=== PATIENT | female | born 1995 | race Caucasian/White ===

== ENCOUNTER 2019-03-19 03:53 | Emergency (ER) | payer OTHER ==
[2019-03-19 04:24] LABS: BASO % 0.3 % (0.0-1.0); EOS # 0.1 10^3/uL (0.0-0.50); EOS % 1.3 % (0.0-3.0); HEMATOCRIT 40.1 % (36.0-47.0); HEMOGLOBIN 13.9 g/dl (12.0-15.5); LYMPH # 1.9 10^3/uL (1.5-6.5); MEAN CORPUSCULAR HGB CONC 34.7 g/dl (32.0-36.5); MEAN CORPUSCULAR VOLUME 86.6 fl (80.0-96.0); MONO # 0.5 10^3/uL (0.0-0.8); MONO % 6.8 % (0.0-5.0); NEUTROPHILS % 66.5 % (36.0-66.0); PLATELET COUNT, AUTOMATED 324 10^3/uL (150-450); RED BLOOD COUNT 4.63 10^6/uL (4.00-5.40); WHITE BLOOD COUNT 7.5 10^3/uL (4.0-10.0)
--- NOTE | 2019-03-19 04:28 | REPVR ---
EXAM: CT Head Without Contrast EXAM DATE/TIME: 03/19/2019 4:13 AM CLINICAL HISTORY: 24 years old, female; Altered mental status/memory loss; Confusion or disorientation; Additional info: AMS TECHNIQUE: Imaging protocol: Computed tomography images of the head without contrast. Radiation optimization: All CT scans at this facility use at least one of these dose optimization techniques: automated exposure control; mA and/or kV adjustment per patient size (includes targeted exams where dose is matched to clinical indication); or iterative reconstruction. COMPARISON: No relevant prior studies available. FINDINGS: Brain: The cortical/white matter interfaces are preserved throughout the brain. There is no evidence of intracranial hemorrhage. No parenchymal mass lesions are identified. Ventricles: The ventricular system is normal in size and configuration. Bones/joints: No acute fractures of the skull are identified. Sinuses: The visualized paranasal sinuses are clear. Mastoid air cells: The visualized mastoid air cells are clear. Soft tissues: Unremarkable. IMPRESSION: Normal appearance of the brain. Electronically signed by: Ashli Kaplan On 03/19/2019 04:28:14 AM
[2019-03-19] MEDS ORDERED: NS 1,000 ML IV ONE (04:30)
--- NOTE | 2019-03-19 04:32 | REPVR ---
EXAM: CT Cervical Spine Without Contrast EXAM DATE/TIME: 03/19/2019 4:13 AM CLINICAL HISTORY: 24 years old, female; Injury or trauma; Fall; Initial encounter; Blunt trauma; Additional info: AMS TECHNIQUE: Imaging protocol: Computed tomography images of the cervical spine without contrast. Coronal and sagittal reformatted images were created and reviewed. Radiation optimization: All CT scans at this facility use at least one of these dose optimization techniques: automated exposure control; mA and/or kV adjustment per patient size (includes targeted exams where dose is matched to clinical indication); or iterative reconstruction. COMPARISON: No relevant prior studies available. FINDINGS: Vertebrae: There is normal alignment of the visualized spine. There is no evidence of acute fracture. Discs/Spinal canal/Neural foramina: The cervical disc heights are normal. No significant spinal canal stenosis is seen. 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 Prevertebral Space: The prevertebral soft tissues appear normal. Soft tissues: The paraspinous soft tissues appear unremarkable. Lungs: The visualized lung apices are clear. IMPRESSION: 1. No acute fractures or subluxations identified. 2. 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 Electronically signed by: Ashli Kaplan On 03/19/2019 04:31:51 AM
[2019-03-19 04:45] LABS: AMPHETAMINES LEVEL URINE NEGATIVE (NEGATIVE); BARBITURATES URINE NEGATIVE (NEGATIVE); BENZODIAZEPINES URINE NEGATIVE (NEGATIVE); CANNABINOIDS URINE NEGATIVE (NEGATIVE); COCAINE METABOLITE URINE NEGATIVE (NEGATIVE); METHADONE URINE NEGATIVE (NEGATIVE); OPIATES URINE NEGATIVE (NEGATIVE); PHENCYCLIDINE URINE NEGATIVE (NEGATIVE)
[2019-03-19 04:52] LABS: ACETAMINOPHEN LEVEL < 2.0 UG/ML (10.0-30.0); ALBUMIN 3.9 GM/DL (3.2-5.2); ALT/SGPT 24 U/L (12-78); BILIRUBIN,DIRECT 0.1 MG/DL (0.0-0.2); BILIRUBIN,TOTAL 0.4 MG/DL (0.2-1.0); BLOOD UREA NITROGEN 7 MG/DL (7-18); CALCIUM LEVEL 8.7 MG/DL (8.5-10.1); CARBON DIOXIDE LEVEL 28 MEQ/L (21-32); CHLORIDE LEVEL 109 MEQ/L (98-107); CREATININE FOR GFR 0.75 MG/DL (0.55-1.30); ETHYL ALCOHOL (ETHANOL) 0.111 % (0.000-0.010); GLOMERULAR FILTRATION RATE > 60.0 (>60); GLUCOSE, FASTING 88 MG/DL (70-100); POTASSIUM SERUM 3.2 MEQ/L (3.5-5.1); SALICYLATE LEVEL < 1.7 MG/DL (5.0-30.0); SODIUM LEVEL 144 MEQ/L (136-145); TOTAL PROTEIN 6.9 GM/DL (6.4-8.2)
[2019-03-19] MEDS ORDERED: SUMAtriptan SUCCINATE 6 MG/0.5 ML VIAL SC ONE (05:30)
--- NOTE | 2019-03-19 09:51 | REPVR ---
EXAM: MR Head Without Contrast EXAM DATE/TIME: 03/19/2019 5:30 AM CLINICAL HISTORY: 24 years old, female; Numbness / parasthesia; Right; Patient HX: Fall; Additional info: Right sided facial and limb paralysis TECHNIQUE: Imaging protocol: MR of the head without contrast. COMPARISON: MRA BRAIN W/O CONTRAST 03/19/2019 8:28 AM FINDINGS: Brain: Normal. No acute infarct. No hemorrhage. No significant white matter disease. No edema. Ventricles: Normal. No ventriculomegaly. Bones/joints: Unremarkable. Soft tissues: Normal. Sinuses: Normal as visualized. No acute sinusitis. Mastoid air cells: Normal as visualized. No mastoid effusion. Orbits: Unremarkable. IMPRESSION: No acute findings. Electronically signed by: Dylon Pate On 03/19/2019 09:51:16 AM
--- NOTE | 2019-03-19 09:54 | REPVR ---
EXAM: MR Cervical Spine Without Contrast EXAM DATE/TIME: 03/19/2019 5:30 AM CLINICAL HISTORY: 24 years old, female; Numbness; Patient HX: Fall; Additional info: Right sided facial and limb paralysis TECHNIQUE: Imaging protocol: Multiplanar magnetic resonance images of the cervical spine without contrast. COMPARISON: CT Spine,cervical w/o contrast 03/19/2019 4:13 AM FINDINGS: Vertebrae: Unremarkable. Spinal cord: Focal syrinx at the level of C5-6. No cord compression. C2-C3: No significant disc disease. No significant spinal stenosis. C3-C4: No significant disc disease. No significant spinal stenosis. C4-C5: No significant disc disease. No significant spinal stenosis. C5-C6: No significant disc disease. No significant spinal stenosis. C6-C7: No significant disc disease. No significant spinal stenosis. C7-T1: No significant disc disease. No significant spinal stenosis. Soft tissues: Unremarkable. IMPRESSION: Focal syrinx at the level of C5-6. Suggest cervical spine MRI with contrast to exclude underlying mass lesion. Electronically signed by: Dylon Pate On 03/19/2019 09:54:27 AM
--- NOTE | 2019-03-19 09:58 | REPVR ---
EXAM: MR Angiogram Head Without Contrast, Arteries EXAM DATE/TIME: 03/19/2019 5:30 AM CLINICAL HISTORY: 24 years old, female; Numbness; Additional info: Right sided facial and limb paralysis TECHNIQUE: Imaging protocol: MR angiogram head without contrast. Exam focused on the arteries. COMPARISON: CT Head without contrast 03/19/2019 4:13 AM FINDINGS: Right internal carotid artery: Unremarkable. Intracranial segment is patent with no significant stenosis. No aneurysm. Right anterior cerebral artery: Unremarkable. No occlusion or significant stenosis. No aneurysm. Right middle cerebral artery: Unremarkable. No occlusion or significant stenosis. No aneurysm. Right posterior cerebral artery: Unremarkable. No occlusion or significant stenosis. No aneurysm. Right vertebral artery: Unremarkable. No occlusion or significant stenosis. No aneurysm. Left internal carotid artery: Unremarkable. Intracranial segment is patent with no significant stenosis. No aneurysm. Left anterior cerebral artery: Unremarkable. No occlusion or significant stenosis. No aneurysm. Left middle cerebral artery: Unremarkable. No occlusion or significant stenosis. No aneurysm. Left posterior cerebral artery: Unremarkable. No occlusion or significant stenosis. No aneurysm. Left vertebral artery: Dominant left vertebral artery. Basilar artery: Unremarkable. No occlusion or significant stenosis. No aneurysm. IMPRESSION: No acute findings. Electronically signed by: Dylon Pate On 03/19/2019 09:58:16 AM
[2019-03-19] MEDS ORDERED: PROHANCE 279.3MG/ML 15ML VIAL (A9576) As Ordered ONE (10:28)
--- NOTE | 2019-03-19 11:05 | REPVR ---
EXAM: MR Cervical Spine With Contrast EXAM DATE/TIME: 03/19/2019 9:56 AM CLINICAL HISTORY: 24 years old, female; Abnormal findings; Abnormal xray or scan of neck and cervical spine; Additional info: Syrinx at c5-6, R/O mass per vrad TECHNIQUE: Imaging protocol: Multiplanar magnetic resonance images of the cervical spine with intravenous contrast. Contrast material: PROHANCE;Contrast volume: 13 ml;Contrast route: IV; COMPARISON: MRI-Spine,Cervical without con 03/19/2019 8:56 AM FINDINGS: Vertebrae: Unremarkable. Spinal cord: Redemonstration of syrinx at C5-6. No evidence of enhancing masses in the cervical spine. No cord compression. Soft tissues: Unremarkable. IMPRESSION: Redemonstration of syrinx at C5-6. No evidence of an underlying neoplasm. Electronically signed by: Dylon Pate On 03/19/2019 11:05:04 AM
[2019-03-19 13:40] VITALS: BP 120/72
--- NOTE | 2019-03-19 21:22 | ECGEPIP ---
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
--- NOTE | 2019-03-27 08:24 | ED PDOC ---
Post-Departure Follow-Up mri c spine with and without contrast faxed to dr [facility] for fu Areli Woodruff MD Mar 27, 2019 08:24
== END 2019-03-19 13:31 | disposition home or self-care (01) ==
LOC: M ED 03:53
DX: G43.809 Other migraine, not intractable, without status migrainosus (principal); G95.0 Syringomyelia and syringobulbia; F10.129 Alcohol abuse with intoxication, unspecified; R00.0 Tachycardia, unspecified; R94.31 Abnormal electrocardiogram [ECG] [EKG]; Z87.820 Personal history of traumatic brain injury; Z88.0 Allergy status to penicillin
CPT/HCPCS: 36415; 36600; 51702; 70450; 70544; 70551; 72125; 72156; 80047; 80048; 80076; 80307; 81001; 82803; 84443; 85025; 93005; 93041; 96360; 99285; A9576; G0480

== ENCOUNTER 2019-04-03 11:02 | Emergency (ER) | payer OTHER ==
[~2019-04-03] VITALS: Ht 165.1 cm; Wt 66.1 kg
[2019-04-03] MEDS ORDERED: MAXA10TA14 PO (11:36)
[2019-04-03] MEDS ORDERED: NAPR-885 PO (11:37)
[2019-04-03] MEDS ORDERED: METOCLOPRAMIDE INJ 10MG/2ML VIAL (J2765) IV ONE (12:30)
[2019-04-03 13:30] LABS: AMPHETAMINES LEVEL URINE NEGATIVE (NEGATIVE); BARBITURATES URINE NEGATIVE (NEGATIVE); BENZODIAZEPINES URINE NEGATIVE (NEGATIVE); CANNABINOIDS URINE NEGATIVE (NEGATIVE); COCAINE METABOLITE URINE NEGATIVE (NEGATIVE); METHADONE URINE NEGATIVE (NEGATIVE); OPIATES URINE NEGATIVE (NEGATIVE); PHENCYCLIDINE URINE NEGATIVE (NEGATIVE)
[2019-04-03] MEDS ORDERED: KETOROLAC 30 MG/ML VIAL (J1885) IV ONE (13:30)
[2019-04-03] MEDS ORDERED: CYCLOBENZAPRINE 5MG TABLET PO ONE (14:30)
[2019-04-03 14:45] VITALS: BP 111/68
[2019-04-03] MEDS ORDERED: CYCL5TAB PO (14:47)
[2019-04-03] MEDS ORDERED: AMIT-255 PO (14:47)
--- NOTE | 2019-04-03 15:41 | REP ---
CT HEAD WITHOUT CONTRAST: CLINICAL HISTORY: Fall, LOC, headache. COMPARISON: CT head without contrast 03/19/2019. TECHNIQUE: Axial images of the head were obtained. FINDINGS: There is right posterior parietal scalp swelling without underlying fracture. There is no evidence of acute intracranial hemorrhage, midline shift, or mass effect. There is no extra-axial fluid collection. The ventricles and sulci are unremarkable. The basal cisterns are patent. The visualized paranasal sinuses and mastoid air cells are clear. IMPRESSION: Right parietal scalp swelling without underling fracture, new since the 03/19/2019 examination. No acute intracranial abnormality. Electronically Signed by Enrike Guerin MD 04/05/2019 06:42 A
--- NOTE | 2019-04-03 15:41 | REP ---
CT OF THE CERVICAL SPINE WITHOUT CONTRAST: REASON FOR STUDY: Fall, loss of consciousness, headache. COMPARISON: CT of the cervical spine without contrast of 03/19/2019. TECHNIQUE: CT of the cervical spine was performed in the axial plane with coronal and sagittal reformats. FINDINGS: There is no acute fracture or subluxation of the cervical spine. There is redemonstration of a rudimentary C7 rib on the right. The paraspinal soft tissues are within normal limits. The previously described syrinx is better demonstrated on cervical MRI. IMPRESSION: No acute fracture or subluxation of the cervical spine. Findings unchanged from the 03/19/2019 examination. Electronically Signed by Enrike Guerin MD 04/05/2019 06:44 A
== END 2019-04-03 15:14 | disposition home or self-care (01) ==
LOC: M ED 11:02
DX: R51 Headache (principal); S09.90XA Unspecified injury of head, initial encounter; W22.09XA Striking against other stationary object, initial encounter; Y92.015 Private garage of single-family (private) house as the place of occurrence of the external cause; Y93.9 Activity, unspecified; Z79.899 Other long term (current) drug therapy; Z88.0 Allergy status to penicillin; Z87.820 Personal history of traumatic brain injury
CPT/HCPCS: 70450; 72125; 80047; 80307; 84702; 96374; 96375; 99284; G0480; J1885; J2765

== ENCOUNTER 2019-11-01 09:54 | Emergency (ER) | payer OTHER ==
[~2019-11-01] VITALS: Ht 165.1 cm; Wt 70.3 kg
[~2019-11-01 09:54] MED LIST: AMIT-255 PO; CYCL5TAB PO; MAXA10TA14 PO; NAPR-885 PO
[2019-11-01] MEDS ORDERED: LEVA750T7 PO (10:50)
[2019-11-01] MEDS ORDERED: ADACEL/BOOSTRIX VACCINE (DIPHTH/PERTUSS/ACELL/TETANUS)0.5ML SYR (90715) IM ONE (11:00)
[2019-11-01 11:25] LABS: BASO % 0.3 % (0.0-1.0); EOS # 0.2 10^3/uL (0.0-0.5); EOS % 2.7 % (0.0-3.0); HEMATOCRIT 42.4 % (36.0-47.0); HEMOGLOBIN 14.5 g/dl (12.0-15.5); LYMPH # 1.1 10^3/uL (1.5-5.0); LYMPH % 18.2 % (24.0-44.0); MEAN CORPUSCULAR HEMOGLOBIN 29.3 pg (27.0-33.0); MEAN CORPUSCULAR HGB CONC 34.2 g/dl (32.0-36.5); MEAN CORPUSCULAR VOLUME 85.7 fl (80.0-96.0); MONO # 0.4 10^3/uL (0.0-0.8); MONO % 5.9 % (0.0-5.0); NEUTROPHILS # 4.5 10^3/uL (1.5-8.5); NEUTROPHILS % 72.6 % (36.0-66.0); PLATELET COUNT, AUTOMATED 316 10^3/uL (150-450); RED BLOOD COUNT 4.95 10^6/uL (4.00-5.40); WHITE BLOOD COUNT 6.3 10^3/uL (4.0-10.0)
[2019-11-01 11:33] VITALS: BP 115/69
[2019-11-01 11:51] LABS: ALBUMIN 4.1 GM/DL (3.2-5.2); ALT/SGPT 29 U/L (12-78); BILIRUBIN,TOTAL 0.4 MG/DL (0.2-1.0); BLOOD UREA NITROGEN 14 MG/DL (7-18); CALCIUM LEVEL 9.1 MG/DL (8.5-10.1); CARBON DIOXIDE LEVEL 27 MEQ/L (21-32); CHLORIDE LEVEL 107 MEQ/L (98-107); CREATININE FOR GFR 0.75 MG/DL (0.55-1.30); GLOMERULAR FILTRATION RATE > 60.0 (>60); GLUCOSE, FASTING 81 MG/DL (70-100); POTASSIUM SERUM 3.4 MEQ/L (3.5-5.1); SODIUM LEVEL 139 MEQ/L (136-145); TOTAL PROTEIN 7.3 GM/DL (6.4-8.2)
[2019-11-01 12:00] LABS: HEPATITIS B SURFACE ANTIBODY POSITIVE (POSITIVE)
[2019-11-01 12:10] LABS: HEPATITIS B SURFACE ANTIGEN NEGATIVE (NEGATIVE)
[2019-11-01 12:39] LABS: HEPATITIS C VIRUS ABY INDEX < 0.0 INDEX (<0.8); HIV 1&2 SCREEN CENTAUR NEGATIVE (NEGATIVE)
== END 2019-11-01 11:35 | disposition home or self-care (01) ==
LOC: M ED 09:54
DX: S61.051A Open bite of right thumb without damage to nail, initial encounter (principal); Y04.1XXA Assault by human bite, initial encounter; Y92.129 Unspecified place in nursing home as the place of occurrence of the external cause; Y99.0 Civilian activity done for income or pay; Z88.0 Allergy status to penicillin

== ENCOUNTER 2019-11-03 16:28 | Emergency (ER) | payer OTHER ==
[~2019-11-03] VITALS: Ht 165.1 cm; Wt 68.8 kg
[2019-11-03 16:28] VITALS: BP 119/63
[~2019-11-03 16:28] MED LIST changes: +LEVA750T7 PO
[2019-11-03] MEDS ORDERED: KEFL500C17 PO (16:38)
[2019-11-03] MEDS ORDERED: ELIM5CRE2 TOP ×2 (17:12→17:35)
== END 2019-11-03 17:31 | disposition home or self-care (01) ==
LOC: M ED 16:28
DX: Z20.7 Contact with and (suspected) exposure to pediculosis, acariasis and other infestations (principal); R21 Rash and other nonspecific skin eruption; Z88.0 Allergy status to penicillin

== ENCOUNTER 2019-11-07 14:57 | Emergency (ER) | payer OTHER ==
[~2019-11-07] VITALS: Ht 165.1 cm; Wt 59.1 kg
[~2019-11-07 14:57] MED LIST changes: +ELIM5CRE2 TOP; +KEFL500C17 PO
[2019-11-07 14:58] VITALS: BP 113/72
[2019-11-07] MEDS ORDERED: CLAR10CA3 PO ×2 (16:08→16:16)
== END 2019-11-07 16:17 | disposition home or self-care (01) ==
LOC: M ED 14:57
DX: L29.9 Pruritus, unspecified (principal); J02.9 Acute pharyngitis, unspecified; Z88.0 Allergy status to penicillin